=== PATIENT | male | born 1980 | race Caucasian/White ===

== ENCOUNTER → 2021-03-29 | Outpatient (CLI) | payer BC ==
--- NOTE | 2021-03-29 11:27 | US ---
EXAMINATION TYPE: US venous doppler duplex LE RT DATE OF EXAM: 03/29/2021 11:03 AM COMPARISON: NONE CLINICAL HISTORY: M79.661 Pain in right leg. Right Popliteal Fossa Vein SIDE PERFORMED: Right TECHNIQUE: The lower extremity deep venous system is examined utilizing real time linear array sonog terry with graded compression, doppler sonography and color-flow sonography. VESSELS IMAGED: Common Femoral Vein Deep Femoral Vein Greater Saphenous Vein * Femoral Vein Popliteal Vein - dual popliteal Proximal Calf Veins (* superficial vessels) Right Leg: Negative for DVT. Dual Right Popliteal Vein is noted with dilated confluence and is at a nola of pain. Superficial, tortuous, compressible vein is noted right anteromedial lower leg at area of skin redness. IMPRESSION: No sonographic evidence for right lower extremity deep vein thrombosis.
== END | disposition home or self-care (01) ==
LOC: RADUSWWP 10:24
PROVIDERS: ATTEND Family Medicine
DX: M79.661 Pain in right lower leg (principal)